=== PATIENT | female | born 1960 | race Caucasian/White ===

== ENCOUNTER 2024-11-11 09:05 | Emergency (ER) | payer BC | END 2024-11-11 09:50 | disposition home or self-care (01) | LOC: SUPCPDRO 09:05 → CC.ED 09:05 | DX: J10.1 Influenza due to other identified influenza virus with other respiratory manifestations (principal); Z88.8 Allergy status to other drugs, medicaments and biological substances; Z79.899 Other long term (current) drug therapy | CPT/HCPCS: 87428-QW; 99283; 99284 ==

== ENCOUNTER 2025-04-19 10:19 | Day surgery (SDC) | payer BC ==
[2025-04-19] MEDS: Lactated Ringers 1,000 ML IV SCH (10:46)
[2025-04-19] MEDS ORDERED: Ketamine 200 MG/20 ML MDV ONE (11:22)
[2025-04-19] MEDS ORDERED: Ondansetron 4 MG/2 ML SDV ONE (11:22)
[2025-04-19] MEDS ORDERED: fentaNYL 50 MCG/ML SDV ONE (11:22)
[2025-04-19] MEDS ORDERED: Midazolam 1 MG/ML 2 ML SDV ONE (11:22)
[2025-04-19] MEDS ORDERED: ePHEDrine 50 MG/ML SDV ONE (11:22)
[2025-04-19] MEDS ORDERED: Propofol 200 MG/20 ML SDV ONE (11:22)
== END 2025-04-19 12:38 | disposition home or self-care (01) ==
LOC: CC.SDS 10:19
PROVIDERS: ATTEND Family Medicine
DX: Z12.11 Encounter for screening for malignant neoplasm of colon (principal); K57.30 Diverticulosis of large intestine without perforation or abscess without bleeding; I10 Essential (primary) hypertension; Z88.8 Allergy status to other drugs, medicaments and biological substances; Z79.899 Other long term (current) drug therapy
CPT/HCPCS: J2250; J2405; J2704; J3010; J3490; J7120